=== PATIENT | male | born 1990 | race Caucasian/White ===

== ENCOUNTER 2019-04-08 10:32 | Emergency (ER) | payer MEDICAID, SELFPAY ==
[2019-04-08 10:37] VITALS: BP 152/89; PULSE 73; RESP 16; TEMP 37.4; O2SAT 98
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
[2019-04-08] MEDS: Methadone Liquid 10 MG/ML 110 MG PO (11:05)
== END 2019-04-08 11:13 | disposition home or self-care (01) ==
PROVIDERS: Emergency Provider Emergency Medicine; PCP Neuromusculoskeletal Medicine & OMM
DX: S01.81XA Laceration without foreign body of other part of head, initial encounter (principal); V43.52XA Car driver injured in collision with other type car in traffic accident, initial encounter
CPT/HCPCS: 90471; 99284; 99283

== ENCOUNTER 2019-11-04 08:45 | Emergency (ER) | payer MEDICAID, SELFPAY ==
[2019-11-04 08:51] VITALS: BP 154/80; PULSE 68; RESP 16; TEMP 36.6; O2SAT 98
--- NOTE | 2019-11-04 08:54 | W.ED.GENAD ---
Discharge Plan Disposition Patient Disposition: HOME Condition: Stable Discharge Details Chief Complaint: EyeProblem Clinical Impression: Foreign body in eye Primary Care Provider: Sean Saunders ED Provider: Maria C Negrete Home Meds and New Rx's Prescriptions: Continued methadone 10 MG/ML concentrate 110 mg PO DAILY RF: 0 dextroamphetamine-amphetamine [Adderall] 20 mg Tablet 60 mg PO BID RF: 0 lamotrigine [Lamictal] 100 mg Tablet 100 mg PO BID RF: 0 Discharge Instructions Instructions: Eye Foreign Body (ED) Additional Instructions: Apply half-inch ribbon of erythromycin ointment in the right eye 4 times daily for the next 5 days. Follow-up with [facility] on [address] [place] [address] in [facility] ([phone]) within the next 2 days for reevaluation. Alternate tylenol and motrin as needed and directed for pain. Return to the emergency department if you develop any worsening or concerning symptoms. Discharge Data Discharge Date/Time-TO BE ENTERED AT DEPARTURE: 11/04/19 10:09 Discharge Physician: Maria C Negrete Medical Decision Making 0847 -- 29-year-old male presents with right eye pain, redness, foreign body sensation and blurry vision for the past 4 days. 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 He does not wear glasses or contacts. OD 20/40 OS 20/25 Right eye injected and tearing. There is a 1 mm speck noted within the cornea just lateral to the pupil at 9:00 noted with gross examination of the eye and with slit lamp. Fluoroscein stain ring noted around foreign body. There is no additional corneal or scleral abrasion noted. 18-gauge needle used to remove majority of the speck which could be metal or jagruti but there still appears to be a pinpoint foreign body remaining. Abrasion of cornea noted around speck due to trauma from needle. Erythromycin ointment placed in right eye. Tetanus up-to-date. Eye was flushed vigorously with balanced salt solution. Called [facility] to schedule follow-up for today or tomorrow. Patient wanted to leave before heard back from [facility]. He was given [facility] follow-up information to call their first thing Wednesday morning for follow-up. He was advised return here with any concerns. 1015 -- Dr. Harvey called the ED and states he is at the office right now and can see patient at this time. Patient was called on his phone and stated that he needed to be somewhere before 11 AM and cannot go today. Patient was informed of the risk of discomfort and further injury to the eye but he states he cannot go there today. Dr. Randall advised that he can see him first thing 8 AM on Wednesday. Patient was informed of this and he will stop at that time. HPI General Mode of arrival: ambulatory. Date/Time Provider Initiated Documentation: 11/04/19 08:48. Limitations to Documentation: no limitations. Information obtained by: patient. History of Present Illness 29 year old M presents to the emergency department with the chief complaint of Right eye pain, redness, foreign body sensation and blurry vision, Quality is described as aching and sharp, and is localized to the eyes (Right). Patient started experiencing this day(s) (4) and it has been constant. Movement worsens symptoms (Right eye) . Patient notes denies fever/chills, headaches and nausea/vomiting. Patient did receive the following treatments prior to arrival, none Related Data Home Medications Medication Instructions Recorded Confirmed methadone 110 mg PO DAILY 02/03/18 11/04/19 dextroamphetamine-amphetamine 60 mg PO BID 04/08/19 11/04/19 [Adderall] lamotrigine [Lamictal] 100 mg PO BID 04/08/19 11/04/19 Allergies Allergy/AdvReac Type Severity Reaction Status Date / Time No Known Allergies Allergy Unverified 11/04/19 08:51 General Stated Complaint: EyeProblem JOSHUA: 4 Review of Systems All systems reviewed & are unremarkable except as noted in HPI and below Constitutional Constitutional: Reports as per HPI, Denies chills and Denies fever(s) Eyes Eyes: Reports blurry vision, Reports irritation, Reports eye pain and Reports photophobia ENT Ears, Nose, Mouth, and Throat: Denies dizziness, Denies sore throat and Denies throat swelling Cardiovascular Cardiovascular: Denies chest pain and Denies dyspnea Respiratory Respiratory: Denies cough and Denies dyspnea Gastrointestinal Gastrointestinal: Denies abdominal pain, Denies diarrhea and Denies vomiting Genitourinary Genitourinary: Denies hematuria and Denies dysuria Musculoskeletal Musculoskeletal: Denies back pain and Denies numbness Integumentary/Breasts Skin/Breast: Denies lesions and Denies rash Neurologic Neurologic: Denies dizziness, Denies focal weakness and Denies numbness Allergic/Immunologic Allergic/Immunologic: Denies throat swelling [facility] Medical History 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) Social History Smoking/Tobacco Use Status: Current every day Tobacco Type: cigarettes Alcohol Intake: current Alcohol Intake frequency: 0-2 drinks per day Drug use: Daily Substance use type: marijuana Do you feel safe at home: Yes Do you feel safe in your relationship?: Yes Exam Const General: cooperative, healthy appearing and no acute distress HENMT Head: normal to inspection Mouth: oral mucosae normal Eyes General: appearance normal, both eyes and all related structures Conjunctivae: conjunctival abnormality right conjunctival injection diffuse Cornea: corneas abnormal on the right fluorescein used and foreign body (located lateral to pupil at 9 o'clock) Pupils: PERRL EOM: EOM intact bilaterally Neck Neck: normal visual inspection Resp Effort & Inspection: normal respiratory effort and able to speak in complete sentences Cardio Rate: regular rate Skin General skin exam: no rashes or lesions noted Neuro General: alert, awake and oriented x3 Motor: muscle tone normal throughout Extrem General: normal to inspection and full ROM Psych Appearance: grossly normal Affect: normal affect Course Vital Signs Vital signs: Vital Signs Temperature 97.9 F 11/04/19 08:51 Pulse 68 11/04/19 08:51 Respiratory Rate 16 11/04/19 08:51 Blood Pressure 154/80 H 11/04/19 08:51 Pulse Oximetry 98 11/04/19 08:51 Temperature 97.9 F 11/04/19 08:51 Temperature Source Tympanic 11/04/19 08:51 Pulse 68 11/04/19 08:51 Respiratory Rate 16 11/04/19 08:51 Blood Pressure 154/80 H 11/04/19 08:51 Blood Pressure Position Sitting 11/04/19 08:51 Pulse Oximetry 98 11/04/19 08:51 Oxygen Delivery Method Room Air 11/04/19 08:51 Oxygen Flow Rate 0 11/04/19 08:51 Pain Level 7 11/04/19 08:51
[2019-11-04] MEDS: Balanced Salt Solution 15 ML BTL (09:10)
[2019-11-04] MEDS: Tetracaine 0.5% 4 ML BTL (09:10)
[2019-11-04] MEDS: Fluorescein STRIPS 100/BOX 1 MG (09:11)
[2019-11-04] MEDS: Erythromycin Ophth Oint 3.5 GM TUBE OD (09:42)
[2019-11-04] MEDS: Balanced Salt Solution 15 ML BTL OD (09:42)
--- NOTE | 2019-11-04 10:51 | NUR.NOTE ---
Nursing Note: Referral and physician note faxed to [facility] for follow up. Nayeli Garrison.
== END 2019-11-04 10:09 | disposition home or self-care (01) ==
PROVIDERS: Emergency Provider Physician Assistant; PCP Neuromusculoskeletal Medicine & OMM
DX: H53.8 Other visual disturbances (principal); T15.01XA Foreign body in cornea, right eye, initial encounter
CPT/HCPCS: 65222

== ENCOUNTER 2020-04-16 18:01 | Emergency (ER) | payer MEDICAID, SELFPAY ==
[2020-04-16 18:03] VITALS: BP 151/80; PULSE 92; RESP 16; TEMP 36.4; O2SAT 98
--- NOTE | 2020-04-16 18:12 | W.ED.GENAD ---
Discharge Plan Disposition Patient Disposition: HOME Condition: Stable Discharge Details Chief Complaint: GenMedical Clinical Impression: Rash Primary Care Provider: Sean Saunders ED Provider: Chuy Hi Home Meds and New Rx's Prescriptions: New amoxicillin-pot clavulanate [Augmentin] 875-125 mg tablet 1 tab PO BID Qty: 14 RF: 0 nystatin 100,000 unit/gram ointment 1 applic TP TID Qty: 30 RF: 0 Continued methadone 10 MG/ML concentrate 110 mg PO DAILY RF: 0 dextroamphetamine-amphetamine [Adderall] 20 mg Tablet 60 mg PO BID RF: 0 lamotrigine [Lamictal] 100 mg Tablet 100 mg PO BID RF: 0 Discharge Instructions Additional Instructions: you are being treated for a bacterial and fungal infection of the belly button if not improved within a week see your primary care provider return to the emergency department if you have high fevers or severe pain or feel more ill Medical Decision Making 30 yo male comes in with redness and discharge from navel for two days. Denies fevers or severe pain. HAs mild erythema in the navel with some whitish discharge, no hernias, no abdominal tenderness. Suspect fungal infection but given the erythema could be cellulitis as well. Will tx with augmentin and nystatin. Advised f/u with pcp and return precautions given Differential Diagnosis Differential Diagnosis: cellulitis, fungal infection HPI General Mode of arrival: ambulatory. Date/Time Provider Initiated Documentation: 04/16/20 18:05. Limitations to Documentation: no limitations. Information obtained by: patient. History of Present Illness 30 year old M presents to the emergency department with the chief complaint of rash, described as moderate, No relieving factors improve symptom(s), No exacerbating factors reported . Related Data Home Medications Medication Instructions Recorded Confirmed methadone 110 mg PO DAILY 02/03/18 04/16/20 dextroamphetamine-amphetamine 60 mg PO BID 04/08/19 04/16/20 [Adderall] lamotrigine [Lamictal] 100 mg PO BID 04/08/19 04/16/20 amoxicillin-pot clavulanate 1 tab PO BID #14 tab 04/16/20 [Augmentin] nystatin 1 applic TP TID #30 gm 04/16/20 Previous Rx's Medication Instructions Recorded amoxicillin-pot clavulanate 1 tab PO BID #14 tab 04/16/20 [Augmentin] nystatin 1 applic TP TID #30 gm 04/16/20 Allergies Allergy/AdvReac Type Severity Reaction Status Date / Time No Known Allergies Allergy Unverified 04/16/20 18:07 General Stated Complaint: GenMedical JOSHUA: 4 Review of Systems All systems reviewed & are unremarkable except as noted in HPI and below Constitutional Constitutional: Denies chills, Denies fever(s) and Denies weakness ENT Ears, Nose, Mouth, and Throat: Denies change in voice Cardiovascular Cardiovascular: Denies chest pain and Denies dyspnea Respiratory Respiratory: Denies cough and Denies dyspnea Gastrointestinal Gastrointestinal: Denies abdominal pain, Denies nausea and Denies vomiting Musculoskeletal Musculoskeletal: Denies joint swelling Neurologic Neurologic: Denies weakness [facility] Medical History (Updated 04/16/20 @ 18:13 by Chuy Hi MD) 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) Social History Smoking/Tobacco Use Status: Current every day Tobacco Type: cigarettes Alcohol Intake: current Alcohol Intake frequency: 0-2 drinks per day Drug use: Daily Substance use type: marijuana Do you feel safe at home: Yes Do you feel safe in your relationship?: Yes Exam Const General: no acute distress Orientation: alert HENMT Head: normal to inspection Ears: external ears normal General nose exam: external nose normal Mouth: moist mucous membranes Eyes General: appearance normal, both eyes and all related structures Neck Neck: normal visual inspection Resp Effort & Inspection: normal respiratory effort and able to speak in complete sentences Cardio Rate: regular rate GI Palpation: soft and nontender Skin General skin exam: no rashes or lesions noted Neuro General: patient alert and patient oriented x3 Extrem General: normal to inspection Psych Mental Status: mental status grossly normal Course Vital Signs Vital signs: Vital Signs Temperature 36.4 C L 04/16/20 18:03 Pulse 92 H 04/16/20 18:03 Respiratory Rate 16 04/16/20 18:03 Blood Pressure 151/80 H 04/16/20 18:03 Pulse Oximetry 98 04/16/20 18:03 Temperature 36.4 C L 04/16/20 18:03 Temperature Source Tympanic 04/16/20 18:03 Pulse 92 H 04/16/20 18:03 Respiratory Rate 16 04/16/20 18:03 Respiratory Effort Non-Labored 08/18/20 18:06 Blood Pressure 151/80 H 04/16/20 18:03 Blood Pressure Position Sitting 04/16/20 18:03 Pulse Oximetry 98 04/16/20 18:03 Oxygen Delivery Method Room Air 04/16/20 18:03 Oxygen Flow Rate 0 04/16/20 18:03 Pain Level 0 04/16/20 18:03
[2020-04-16 18:13] VITALS: RESP 12
== END 2020-04-16 18:25 | disposition home or self-care (01) ==
LOC: ER 18:33
PROVIDERS: Emergency Provider Emergency Medicine; PCP Neuromusculoskeletal Medicine & OMM
DX: L03.316 Cellulitis of umbilicus (principal)
CPT/HCPCS: 99283